=== PATIENT | female | born 1960 | race Caucasian/White ===

== ENCOUNTER 2016-12-05 09:59 | Inpatient (IN) | payer OTHER ==
--- NOTE | ~2016-12-05 | DS ---
Unit #: [id number] #: [id number] Patient: DG WHYTE [id number] [address] [place], [place] [address] [id number] MR#: [id number] NAME: DG WHYTE ROOM: 454 Age: 56 Sex: F Admission Date: 12/05/2016 : 1960 Discharge Date: 12/06/2016 Attending Physician: Norm Calloway M.D. Referring Physician: Norm Calloway M.D. Primary Care Physician: Alfonso Aquino DISCHARGE SUMMARY ADMITTING DIAGNOSIS Lateral dislocation of the patella, status post total knee. DISCHARGE DIAGNOSIS Lateral dislocation of the patella, status post total knee. PROCEDURE IN HOSPITAL Repair of medial arthrotomy avulsion with lateral release. HOSPITAL COURSE The patient was brought to the hospital on 12/05/2016, underwent the above procedure. Postoperatively, she has done well. She has been up her neurovascular exam is intact. Her pain is controlled with Percocet 10. It was felt she can be discharged home today. She is in a knee immobilizer. She is weightbearing as tolerated, but no range of motion for at least 2 weeks. She will return to the office in 2 weeks. She is on Coumadin 5 mg daily for DVT prophylaxis. We will check the protime tomorrow and Monday and adjust her dose appropriately. CONDITION ON DISCHARGE Improved. DISPOSITION To home. Dictated by... Bouchra Hannah/bev TD: 12/06/2016 22:29 JOB #: [id number] Unit #: [id number] #: [id number] Patient: DG WHYTE DISCHARGE SUMMARY Page 1 of 1 X Norm Calloway MD X DISCHARGE SUMMARY
--- NOTE | ~2016-12-05 | BMI ---
[facility] Nutrition Therapy DATE: 12/06/16 Patient: DG WHYTE Physician: JOSSELYN Address: [address] [place] [address] Room/Bed: [address] [place] [address], Zip: [place] [address] Admit Date: 12/05/16 Date of : 56 Height: 5 7 Weight: 282 128.1 HIGH BMI NOTE: ANTHROPOMETRICS: HT: 67" WT: 128.1 KG BMI: 44.2 INTERVENTION: 1. REGULAR DIET RECOMMENDATIONS: 1. ADD HEART HEALTHY DIET RESTRICTION IN ORDER TO PROMOTE GRADUAL WEIGHT LOSS TOWARDS HEALTHY BMI. Respectfully, CAROL MOISE RD, LD [facility] cc: client file
--- NOTE | ~2016-12-05 | OR ---
Unit #: [id number] #: [id number] Patient: DG WHYTE [id number] [address] [place], [place] [address] [id number] MR#: [id number] NAME: DG WHYTE ROOM: 454 Date of Procedure: 12/05/2016 Admission Date: 12/05/2016 Surgeon: Norm Calloway M.D. : 1960 Attending Physician: Norm Calloway M.D. Referring Physician: Norm Calloway M.D. Primary Care Physician: Alfonso Aquino OPERATIVE REPORT PREOPERATIVE DIAGNOSIS Disruption of the vastus medialis obliquus repair, status post total knee. POSTOPERATIVE DIAGNOSIS Disruption of the vastus medialis obliquus repair, status post total knee. PROCEDURE PERFORMED Repair of the vastus medialis obliquus and medial arthrotomy with lateral release. ASSISTANTS Talha Cooper. ANESTHESIA General. ESTIMATED BLOOD LOSS About 100 mL. INDICATIONS FOR PROCEDURE This is a 56-year-old lady, who has had a left total knee. Her patella was subluxed laterally. She has difficulty walking and on palpation, there appears to be a deficit in the area of the VMO. She is brought to the hospital today for repair of the VMO and arthrotomy and lateral release. DESCRIPTION OF PROCEDURE The patient was brought to the holding room, given appropriate IV antibiotics that will be continued postop. She was then brought back to the operating room and given a general anesthetic. Tourniquet placed around the left thigh. The left leg was prepped and draped in a sterile fashion. After this was done, the tourniquet was inflated to 300. The previous skin incision was opened, subcutaneous dissected away, and immediately clear fluid was encountered. After the subcutaneous was dissected away, the arthrotomy was noted to be completely disrupted. The area was exposed and debrided and then we repaired the VMO in the medial arthrotomy with interrupted #1 Ethibond backed up with #1 Vicryl. A lateral release was performed and the patella tracked properly. We then irrigated the knee out, injected the ropivacaine mixture and it was closed using 0 Vicryl in the subcutaneous, 2-0 Vicryl in the subcutaneous, and jonathon in the skin. A lateral release was performed prior to closure. Unit #: [id number] #: [id number] Patient: DG WHYTE Dictated by... Bouchra Hannah/bev TD: 12/06/2016 01:21 JOB #: [id number] OPERATIVE REPORT Page 1 of 1 X Norm Calloway MD X PROCEDURE OPERATIVE NOTE
--- NOTE | ~2016-12-05 | EKG ---
PATIENT: DG WHYTE UNIT #: [id number] Ventricular Rate: 79 BPM Atrial Rate: 79 BPM P-R Interval: 134 ms QRS Duration: 74 ms Q-T Interval: 368 ms QTC Calculation(Bezet): 421 ms Calculated R Seguin: 15 degrees Calculated T Seguin: 32 degrees Diagnosis Line: Ectopic atrial rhythm Diagnosis Line: Abnormal ECG Diagnosis Line: When compared with ECG of 21-AUG-2013 10:07, Diagnosis Line: Ectopic atrial rhythm has replaced Normal sinus Diagnosis Line: rhythm Diagnosis Line: Confirmed by AXEL ZAVALA MD ([id number]) on 12/06/2016 Diagnosis Line: 11:15:20 PM INTERPRETING MD: SALLY WOLF
[~2016-12-05 09:59] MED LIST: ABILIFY20 MG PO; ACIPHEX20 MG PO; AMBIEN PO; AMITRYPTYLINE PO; AMLODIPINE BESYL5 MG PO; BRINTELLIX10 MG PO; BUDEPRION XL; CIPRO PO; CYMBALTA PO; DIAZEPAM PO; DIOVAN HCT 160/1 TAB PO; ESTRACE1 MG PO; GEODAN PO; IBUPROFEN PO; IBUPROFEN800 MG PO; LEVAQUIN PO; LORAZEPAM1 MG PO; LORTAB 10/500 T1 TAB PO; LOSARTAN-HCTZ1 EAC1 PO; LYRICA PO; MUCINEX DM1 TAB.SR . PO; NIZORAL 2% CREA15 GM EXT; OXYBUTYNIN10 MG/BOTT PO; OXYCODONE-APAP1 EAC5 PO; PERCOCET10 PO; PREMARIN PO; ROXICET 5-325 T1 TAB PO; SEROQUEL PO; TOPIRAMATE100 MG PO; TOPIRAMATE200 M1 PO; TORADOL10 MG PO
[2016-12-05 11:01] LABS: HEMATOCRIT 40.2 % (35.0-45.0); HEMOGLOBIN 13.4 gm/dL (12.0-16.0); MEAN CELL VOLUME 90.4 FL (83-96); MEAN CORPUSCULAR HGB CONC 33.2 g/dL (30-36); MEAN PLATELET VOLUME 8.3 FL (6.5-11.5); RED BLOOD COUNT 4.45 X10e (3.90-5.30); WHITE BLOOD COUNT 6.9 X10e3 (4.0-10.5)
[2016-12-05 11:10] LABS: PROTHROMBIN TIME (PATIENT) 10.3 SECONDS (9.6-11.5)
[2016-12-05 11:25] LABS: BUN/CREATININE RATIO 17.5; CALCIUM SERUM 10.2 mg/dL (8.4-10.2); CREATININE SERUM 0.8 mg/dL (0.6-1.4); GLOM FILT RATE Estimated 81.3 mL/min (>60); POTASSIUM 3.2 mmol/L (3.5-5.1)
[2016-12-06 03:15] LABS: BASOPHIL# 0.1 X10e3 (0-0.3); DIFF IND NO; HEMATOCRIT 35.8 % (35.0-45.0); HEMOGLOBIN 11.8 gm/dL (12.0-16.0); LYMPHOCYTE# 0.8 X10e3 (1.0-3.5); LYMPHOCYTE% 8.2 % (17.0-45.0); MEAN CELL VOLUME 91.7 FL (83-96); MEAN CORPUSCULAR HEMOGLOBIN 30.2 PG (28-34); MEAN CORPUSCULAR HGB CONC 32.9 g/dL (30-36); MEAN PLATELET VOLUME 8.3 FL (6.5-11.5); MONOCYTE# 0.3 X10e3 (0-1.0); MONOCYTE% 3.4 % (3.0-12.0); NEUTROPHIL# 8.4 X10e3 (1.5-7.1); NEUTROPHIL% 87.4 % (40-75); PLATELET COUNT 255 X10e3 (140-420); RED CELL DISTRIBUTION WIDTH 14.1 % (11.0-15.5); WHITE BLOOD COUNT 9.6 X10e3 (4.0-10.5)
[2016-12-06] MEDS ORDERED: PERCOCET PO (10:03)
[2016-12-06] MEDS ORDERED: COUMADIN5 MG PO (10:21)
[2016-12-06 12:44] LABS: INR 1.6; PROTHROMBIN TIME (PATIENT) 17.5 SECONDS (9.6-11.5)
== END 2016-12-06 13:27 | disposition home health service (06) | DRG 501 ==
LOC: CSUR 09:59 → CPACUOF 11:31 → C4B 15:40
PROVIDERS: Orthopaedic Surgery
PROC: 0KNT0ZZ Release Left Lower Leg Muscle, Open Approach (ICD-10-PCS; 2016-12-05)
PROC: 0KQT0ZZ Repair Left Lower Leg Muscle, Open Approach (ICD-10-PCS; principal; 2016-12-05 11:30)
DX: S83.192A Other subluxation of left knee, initial encounter (principal); Z68.41 Body mass index [BMI] 40.0-44.9, adult; I10 Essential (primary) hypertension; E66.9 Obesity, unspecified; Z98.84 Bariatric surgery status; K21.9 Gastro-esophageal reflux disease without esophagitis; Z90.710 Acquired absence of both cervix and uterus; Z96.652 Presence of left artificial knee joint
CPT/HCPCS: 80048; 85025; 85027; 85610; 86850; 86900; 86901; 93005; 94760; 97116; 97161; 97165; 97535; J0131; J0171; J0690; J0735; J1100; J1170; J1650; J1885; J2250; J2405; J2795; J3010